=== PATIENT | female | born 1995 ===

== ENCOUNTER 2020-05-04 15:26 | Emergency (ER) | payer SELFPAY ==
[~2020-05-04] VITALS: Ht 157.5 cm; Wt 63.6 kg
[2020-05-04 15:28] VITALS: TEMP 98.5
[2020-05-04 17:32] VITALS: BP 125/75; PULSE 60
== END 2020-05-04 17:31 | disposition home or self-care (01) ==
LOC: COL.ER 15:26
DX: S00.83XA Contusion of other part of head, initial encounter (principal); S50.02XA Contusion of left elbow, initial encounter; M54.2 Cervicalgia; V43.52XA Car driver injured in collision with other type car in traffic accident, initial encounter